=== PATIENT | female | born 1955 | race Caucasian/White ===

== ENCOUNTER → 2017-01-12 | Outpatient (CLI) | payer BC | LOC: MC.RAD 14:31 | DX: Z12.31 Encounter for screening mammogram for malignant neoplasm of breast (principal) ==

== ENCOUNTER → 2018-02-15 | Outpatient (CLI) | payer BC | LOC: COL.RAD 08:07 | DX: K76.0 Fatty (change of) liver, not elsewhere classified (principal); N27.0 Small kidney, unilateral; R11.2 Nausea with vomiting, unspecified; R19.7 Diarrhea, unspecified ==

== ENCOUNTER → 2018-02-22 | Outpatient (CLI) | payer BC | LOC: COL.RAD 11:30 | DX: R10.84 Generalized abdominal pain (principal); R19.7 Diarrhea, unspecified; R11.0 Nausea | CPT/HCPCS: A9537 ==

== ENCOUNTER → 2018-02-22 | Outpatient (CLI) | payer BC | LOC: MC.RAD 15:20 | DX: Z12.31 Encounter for screening mammogram for malignant neoplasm of breast (principal); N63.21 Unspecified lump in the left breast, upper outer quadrant ==

== ENCOUNTER → 2018-02-26 | Outpatient (CLI) | payer BC | LOC: MC.RAD 07:54 | DX: N63.20 Unspecified lump in the left breast, unspecified quadrant (principal) ==

== ENCOUNTER → 2018-03-05 | Outpatient (CLI) | payer BC | LOC: MC.RAD 09:57 | DX: D24.2 Benign neoplasm of left breast (principal); N60.12 Diffuse cystic mastopathy of left breast ==

== ENCOUNTER → 2019-10-17 | Outpatient (CLI) | payer BC | LOC: COL.RAD 10:30 | DX: K59.00 Constipation, unspecified (principal); R10.9 Unspecified abdominal pain; R19.7 Diarrhea, unspecified; R11.2 Nausea with vomiting, unspecified; Z90.49 Acquired absence of other specified parts of digestive tract ==

== ENCOUNTER → 2019-11-14 | Outpatient (CLI) | payer BC | LOC: COL.RAD 07:55 | DX: K30 Functional dyspepsia (principal) | CPT/HCPCS: A9541 ==

== ENCOUNTER → 2019-11-14 | Outpatient (CLI) | payer BC | LOC: MC.RAD 10:35 | DX: Z00.00 Encounter for general adult medical examination without abnormal findings (principal); Z12.31 Encounter for screening mammogram for malignant neoplasm of breast ==

== ENCOUNTER → 2021-06-24 | Outpatient (CLI) | payer MEDICARE | LOC: MC.RAD 14:04 | DX: Z12.31 Encounter for screening mammogram for malignant neoplasm of breast (principal) ==

== ENCOUNTER → 2024-05-22 | Outpatient (CLI) | payer MEDICARE, BC | LOC: COL.RAD 15:50 | DX: J93.9 Pneumothorax, unspecified (principal); J98.4 Other disorders of lung; R91.8 Other nonspecific abnormal finding of lung field ==